=== PATIENT | female | born 1990 | race Asian ===

== ENCOUNTER → 2017-05-10 | Outpatient (CLI) | payer MEDICAID | LOC: LAB.R 08:00 | PROVIDERS: ATTEND Obstetrics & Gynecology | DX: Z11.3 Encounter for screening for infections with a predominantly sexual mode of transmission (principal) | CPT/HCPCS: 87070; 87491; 87591 ==

== ENCOUNTER 2017-05-21 15:53 | Outpatient (CLI) | payer MEDICAID | END 2017-05-21 15:54 | disposition home or self-care (01) | LOC: LAB.R 15:53 | PROVIDERS: ATTEND Obstetrics & Gynecology | DX: Z11.3 Encounter for screening for infections with a predominantly sexual mode of transmission (principal) | CPT/HCPCS: 87491; 87591 ==

== ENCOUNTER 2018-02-12 14:20 | Outpatient (CLI) | payer MEDICAID | END 2018-02-12 14:21 | disposition home or self-care (01) | LOC: LAB.R 14:20 | PROVIDERS: ATTEND Internal Medicine | DX: Z20.2 Contact with and (suspected) exposure to infections with a predominantly sexual mode of transmission (principal) | CPT/HCPCS: 87491; 87591 ==

== ENCOUNTER 2018-08-11 20:53 | Outpatient (CLI) | payer MEDICAID ==
--- NOTE | 2018-08-12 11:32 | Ultrasound Report ---
Reason: DISPLACEMENT OF INTRAUTERINE CONTRACEPTIVE DEVICE, Procedure Date: 08/11/2018 Accession Number: [id number] / [id number] Procedure: US - Pelvic w/Transvaginal CPT Code: FULL RESULT: EXAM: PELVIC ULTRASOUND EXAM DATE: 08/11/2018 09:01 PM. CLINICAL HISTORY: Displacement of intrauterine contraceptive device. COMPARISON: None. TECHNIQUE: Realtime transabdominal pelvic scan performed to identify the uterus and adnexa and as an overview of other pelvic structures, followed by transvaginal scan to provide greater detail of the uterus and adnexa, with static image documentation. FINDINGS: Uterus: 7.7 x 3.3 x 4.7 cm, volume 62 cc. Anteverted position. Normal overall size and echotexture. Masses: None. Endometrium: 3 mm. An intrauterine device is seen in the expected position. Cervix: Unremarkable. Right Ovary: 2.4 x 1.7 x 2.4 cm, volume 4.8 cc. Normal echotexture and blood flow. Left Ovary: 2.5 x 2.6 x 3.7 cm, volume 12.7 cc. Normal echotexture and blood flow. A 1.3 x 1.3 x 1.5 cm cyst is noted. Free Fluid: None. Other: None. IMPRESSION: Intrauterine device in normal position. [facility]
== END 2018-08-11 20:54 | disposition home or self-care (01) ==
LOC: DI 20:53
PROVIDERS: ATTEND Obstetrics & Gynecology
DX: T83.32XA Displacement of intrauterine contraceptive device, initial encounter (principal)
CPT/HCPCS: 76830; 76856